=== PATIENT | female | born 1970 | race African-American/Black ===

== ENCOUNTER 2020-09-19 07:21 | Inpatient (IN) ==
[2020-09-19] MEDS ORDERED: SODIUM CHLORIDE 0.9% 1,000 ML IV STA (07:46)
[2020-09-19] MEDS ORDERED: ACETAMINOPHEN 500 MG TABLET PO STA (07:47)
[2020-09-19 08:12] LABS: Hematocrit 42.7 VOL% (35.7-47.0); Hemoglobin 14.2 GM/DL (12.0-16.0); Immature Granulocytes % 0.2 %; Immature Granulocytes Absolute 0.01 #; Lymphocytes # 1.4 10*3/uL (1.4-4.0); Lymphocytes % 34.6 % (21.3-54.2); Mean Corpuscular HGB Conc 33.3 GM/DL (32-36); Mean Corpuscular Volume 81.5 FL (87-102); Mean Platelet Volume 10.6 FL (9.6-12.0); Monocytes % 7.6 % (1.7-12.7); Neutrophils % 57.6 % (38.7-73.9); Platelet Count 223 T/CUMM (130-400); Red Blood Count 5.24 MC/CUMM (3.8-5.5); Red Cell Distribution Width 12.9 % (9.3-17.3); White Blood Count 4.1 T/CUMM (4-12)
[2020-09-19 08:29] LABS: Albumin 3.4 G/DL (3.4-5.0); Bilirubin,Total 0.7 MG/DL (0.2-1.0); Calcium 8.5 MG/DL (8.5-10.1); Osmolality,Calculated 268.4 MOS/KG (273-304); Potassium 3.6 MMOL/L (3.5-5.1); Total Protein 8.3 G/DL (6.4-8.3)
[2020-09-19 08:30] LABS: Lymphocytes 31 % (20-55); Platelet Estimate Adequate; Segmented Neutrophils 58 % (50-85); Total Cells Counted 100
[2020-09-19 08:31] LABS: Hypochromasia 1+; Microcytosis 1+
[2020-09-19] MEDS ORDERED: DEXTROSE 50% 25 GM/50 ML VIAL IV PRN (10:17)
[2020-09-19] MEDS ORDERED: GLUCAGON 1 MG VIAL IM PRN (10:17)
[2020-09-19] MEDS ORDERED: AZITHROMYCIN INJ 500 MG in SODIUM CHLORIDE 0.9% 250 ML IV ONE (10:17)
[2020-09-19] MEDS ORDERED: guaiFENesin/DM ER 600-30 MG TABLET PO PRN (10:30)
[2020-09-19] MEDS ORDERED: REMDESIVIR 200 MG in SODIUM CHLORIDE 0.9% 210 ML IV ONE (12:00)
[2020-09-19] MEDS: CHOLECALCIFEROL 1,000 UNIT TABLET PO SCH (13:06)
[2020-09-19] MEDS: FAMOTIDINE 20 MG TABLET PO SCH ×2 (13:06→20:58)
[2020-09-19] MEDS: ASCORBIC ACID 500 MG TABLET PO SCH ×2 (13:06→20:58)
[2020-09-19] MEDS: DEXAMETHASONE 4 MG/1 ML VIAL IV SCH (13:06)
[2020-09-19] MEDS: CETIRIZINE 10 MG TABLET PO SCH (13:06)
[2020-09-19] MEDS: ZINC GLUCONATE 50 MG TABLET PO SCH (13:06)
[2020-09-19] MEDS: SODIUM CHLORIDE 0.9% 1,000 ML IV SCH ×2 (13:06→23:52)
[2020-09-19] MEDS: ENOXAPARIN 40 MG/0.4 ML SYRINGE SUBCUT SCH (13:06)
[2020-09-19] MEDS: ONDANSETRON 4 MG/2 ML VIAL IV PRN (13:08)
[2020-09-19] MEDS: INSULIN REGULAR 100 UNIT/ML SUBCUT SCH ×3 (13:24→20:58)
[2020-09-19] MEDS: cefTRIAXone 1,000 MG in SODIUM CHLORIDE 0.9% 100 ML IV SCH (14:19)
[2020-09-19] MEDS ORDERED: SODIUM CHLORIDE 0.9% 1,000 ML IV PRN (14:41)
[2020-09-19] MEDS: ACETAMINOPHEN 325 MG TABLET PO PRN (20:58)
[2020-09-19] MEDS: MELATONIN 3 MG TABLET PO PRN (20:58)
[2020-09-20 05:07] LABS: Hemoglobin 12.9 GM/DL (12.0-16.0); Immature Granulocytes % 0.4 %; Immature Granulocytes Absolute 0.01 #; Lymphocytes # 1.2 10*3/uL (1.4-4.0); Lymphocytes % 47.2 % (21.3-54.2); Mean Corpuscular HGB Conc 32.3 GM/DL (32-36); Mean Corpuscular Volume 83.3 FL (87-102); Mean Platelet Volume 10.9 FL (9.6-12.0); Monocytes % 10.5 % (1.7-12.7); Neutrophils % 41.9 % (38.7-73.9); Platelet Count 202 T/CUMM (130-400); Red Cell Distribution Width 12.9 % (9.3-17.3); White Blood Count 2.5 T/CUMM (4-12)
[2020-09-20] MEDS: ONDANSETRON 4 MG/2 ML VIAL IV PRN ×2 (05:20→12:08)
[2020-09-20] MEDS: ACETAMINOPHEN 325 MG TABLET PO PRN (05:24)
[2020-09-20 05:28] LABS: Albumin 2.8 G/DL (3.4-5.0); Bilirubin,Total 0.5 MG/DL (0.2-1.0); Calcium 7.8 MG/DL (8.5-10.1); Ferritin 272.8 ng/ml (8-252); Osmolality,Calculated 278.5 MOS/KG (273-304); Potassium 3.9 MMOL/L (3.5-5.1); Total Protein 7.1 G/DL (6.4-8.3)
[2020-09-20 05:34] LABS: Lymphocytes 36 % (20-55); Segmented Neutrophils 54 % (50-85); Total Cells Counted 100
[2020-09-20 05:35] LABS: Hypochromasia Slight; Microcytosis Slight; Platelet Estimate Normal
[2020-09-20] MEDS: DEXAMETHASONE 4 MG/1 ML VIAL IV SCH (08:01)
[2020-09-20] MEDS: INSULIN REGULAR 100 UNIT/ML SUBCUT SCH ×4 (08:01→21:47)
[2020-09-20] MEDS: ZINC GLUCONATE 50 MG TABLET PO SCH (08:03)
[2020-09-20] MEDS: CHOLECALCIFEROL 1,000 UNIT TABLET PO SCH (08:03)
[2020-09-20] MEDS: CETIRIZINE 10 MG TABLET PO SCH (08:03)
[2020-09-20] MEDS: FAMOTIDINE 20 MG TABLET PO SCH ×2 (08:03→21:12)
[2020-09-20] MEDS: AZITHROMYCIN 250 MG TABLET PO SCH (08:03)
[2020-09-20] MEDS: ASCORBIC ACID 500 MG TABLET PO SCH ×2 (08:03→21:12)
[2020-09-20] MEDS: cefTRIAXone 1,000 MG in SODIUM CHLORIDE 0.9% 100 ML IV SCH (10:50)
[2020-09-20] MEDS: REMDESIVIR 100 MG in SODIUM CHLORIDE 0.9% 100 ML IV SCH (10:50)
[2020-09-20] MEDS: ENOXAPARIN 40 MG/0.4 ML SYRINGE SUBCUT SCH (10:50)
[2020-09-20] MEDS: SODIUM CHLORIDE 0.9% 1,000 ML IV SCH ×2 (11:26→11:38)
[2020-09-20] MEDS ORDERED: SIMETHICONE CHEW 125 MG TABLET PO PRN (13:35)
[2020-09-20] MEDS: PANTOPRAZOLE 40 MG TABLET PO SCH (14:13)
[2020-09-20] MEDS: SUCRALFATE 1 GM/10 ML UDCUP PO SCH ×2 (16:22→21:12)
[2020-09-20] MEDS: MORPHINE 4 MG/1 ML VIAL IV PRN ×2 (16:57→21:14)
[2020-09-21 05:54] LABS: Hematocrit 40.5 VOL% (35.7-47.0); Hemoglobin 13.3 GM/DL (12.0-16.0); Immature Granulocytes % 0.2 %; Immature Granulocytes Absolute 0.01 #; Lymphocytes # 1.4 10*3/uL (1.4-4.0); Mean Corpuscular HGB Conc 32.8 GM/DL (32-36); Mean Corpuscular Volume 82.7 FL (87-102); Mean Platelet Volume 11.1 FL (9.6-12.0); Monocytes % 6.4 % (1.7-12.7); Neutrophils % 68.4 % (38.7-73.9); Platelet Count 237 T/CUMM (130-400); White Blood Count 5.5 T/CUMM (4-12)
[2020-09-21 06:13] LABS: Albumin 3.2 G/DL (3.4-5.0); Bilirubin,Total 0.5 MG/DL (0.2-1.0); Calcium 8.5 MG/DL (8.5-10.1); Ferritin 395.7 ng/ml (8-252); Osmolality,Calculated 278.7 MOS/KG (273-304); Potassium 3.1 MMOL/L (3.5-5.1); Total Protein 7.7 G/DL (6.4-8.3)
[2020-09-21 06:19] LABS: Band Neutrophils 2 % (0-10); Lymphocytes 25 % (20-55); Segmented Neutrophils 66 % (50-85); Total Cells Counted 100
[2020-09-21 06:20] LABS: Microcytosis Slight; Platelet Estimate Adequate
[2020-09-21] MEDS: DEXAMETHASONE 4 MG/1 ML VIAL IV SCH (08:06)
[2020-09-21] MEDS: INSULIN REGULAR 100 UNIT/ML SUBCUT SCH ×4 (08:06→21:35)
[2020-09-21] MEDS: SUCRALFATE 1 GM/10 ML UDCUP PO SCH ×5 (08:06→21:35)
[2020-09-21] MEDS: AZITHROMYCIN 250 MG TABLET PO SCH (08:07)
[2020-09-21] MEDS: CHOLECALCIFEROL 1,000 UNIT TABLET PO SCH (08:07)
[2020-09-21] MEDS: FAMOTIDINE 20 MG TABLET PO SCH ×2 (08:07→21:35)
[2020-09-21] MEDS: PANTOPRAZOLE 40 MG TABLET PO SCH (08:07)
[2020-09-21] MEDS: ZINC GLUCONATE 50 MG TABLET PO SCH (08:07)
[2020-09-21] MEDS: ASCORBIC ACID 500 MG TABLET PO SCH ×2 (08:07→21:35)
[2020-09-21] MEDS: CETIRIZINE 10 MG TABLET PO SCH (08:08)
[2020-09-21] MEDS: SODIUM CHLORIDE 0.9% 1,000 ML IV SCH ×3 (08:09→10:59)
[2020-09-21] MEDS: ENOXAPARIN 40 MG/0.4 ML SYRINGE SUBCUT SCH ×2 (09:46→11:00)
[2020-09-21] MEDS: REMDESIVIR 100 MG in SODIUM CHLORIDE 0.9% 100 ML IV SCH (09:46)
[2020-09-21] MEDS: cefTRIAXone 1,000 MG in SODIUM CHLORIDE 0.9% 100 ML IV SCH (10:43)
[2020-09-21] MEDS: MELATONIN 3 MG TABLET PO PRN (21:36)
[2020-09-21] MEDS: ACETAMINOPHEN 325 MG TABLET PO PRN (21:36)
[2020-09-22 05:05] LABS: Hemoglobin 11.9 GM/DL (12.0-16.0); Immature Granulocytes Absolute 0.04 #; Lymphocytes % 47.6 % (21.3-54.2); Mean Corpuscular HGB Conc 33.1 GM/DL (32-36); Mean Corpuscular Volume 81.6 FL (87-102); Mean Platelet Volume 10.7 FL (9.6-12.0); Monocytes % 8.9 % (1.7-12.7); Neutrophils % 42.5 % (38.7-73.9); Platelet Count 241 T/CUMM (130-400); Red Blood Count 4.41 MC/CUMM (3.8-5.5); Red Cell Distribution Width 13.1 % (9.3-17.3); White Blood Count 4.2 T/CUMM (4-12)
[2020-09-22] MEDS: ONDANSETRON 4 MG/2 ML VIAL IV PRN ×2 (05:10→09:41)
[2020-09-22 05:32] LABS: Albumin 2.5 G/DL (3.4-5.0); Bilirubin,Total 0.7 MG/DL (0.2-1.0); Calcium 7.3 MG/DL (8.5-10.1); Ferritin 391.3 ng/ml (8-252); Osmolality,Calculated 282.3 MOS/KG (273-304); Potassium 3.3 MMOL/L (3.5-5.1); Total Protein 5.7 G/DL (6.4-8.3)
[2020-09-22 06:16] LABS: Hypochromasia 1+; Lymphocytes 41 % (20-55); Microcytosis 1+; Ovalocytes Slight; Platelet Estimate Adequate; Segmented Neutrophils 51 % (50-85); Total Cells Counted 100
[2020-09-22] MEDS: SUCRALFATE 1 GM/10 ML UDCUP PO SCH ×2 (08:24→12:49)
[2020-09-22] MEDS: ASCORBIC ACID 500 MG TABLET PO SCH (08:25)
[2020-09-22] MEDS: PANTOPRAZOLE 40 MG TABLET PO SCH (08:25)
[2020-09-22] MEDS: CHOLECALCIFEROL 1,000 UNIT TABLET PO SCH (08:25)
[2020-09-22] MEDS: ZINC GLUCONATE 50 MG TABLET PO SCH (08:25)
[2020-09-22] MEDS: DEXAMETHASONE 4 MG/1 ML VIAL IV SCH (08:25)
[2020-09-22] MEDS: FAMOTIDINE 20 MG TABLET PO SCH (08:25)
[2020-09-22] MEDS: CETIRIZINE 10 MG TABLET PO SCH (08:26)
[2020-09-22] MEDS: AZITHROMYCIN 250 MG TABLET PO SCH (08:26)
[2020-09-22] MEDS: POTASSIUM CHLORIDE 20 MEQ TABLET PO PRN ×3 (08:26→12:49)
[2020-09-22] MEDS: MORPHINE 4 MG/1 ML VIAL IV PRN (08:58)
[2020-09-22] MEDS: ENOXAPARIN 40 MG/0.4 ML SYRINGE SUBCUT SCH (09:42)
[2020-09-22] MEDS: REMDESIVIR 100 MG in SODIUM CHLORIDE 0.9% 100 ML IV SCH (09:45)
[2020-09-22] MEDS: cefTRIAXone 1,000 MG in SODIUM CHLORIDE 0.9% 100 ML IV SCH (10:05)
[2020-09-22] MEDS: INSULIN REGULAR 100 UNIT/ML SUBCUT SCH ×2 (10:26→12:49)
[2020-09-22 12:29] VITALS: BP 119/82
== END 2020-09-22 15:08 | disposition home or self-care (01) | DRG 177 ==
LOC: N.ED 07:21 → SUATTDRO 09:12 → INTOOBSV 09:12 → N.EDINP 09:12 → N.2E 10:57
PROVIDERS: ADMIT Internal Medicine; ATTEND Internal Medicine